=== PATIENT | male | born 1985 ===

== ENCOUNTER 2018-05-14 12:30 | Emergency (ER) | payer MEDICAID ==
[2018-05-14 12:54] VITALS: BMI 22.9
[2018-05-14 13:06] VITALS: BP 123/84; PULSE 78; RESP 18; TEMP 98.6; O2SAT 97
[2018-05-14] MEDS ORDERED: Lidocaine 5% Patch TD STA (13:42)
[2018-05-14] MEDS ORDERED: Lidocaine 5% Patch TD ONE (14:16)
--- NOTE | 2018-05-14 15:31 | C.PDOC ---
History Of Present Illness 32 year old male, who is otherwise well, presents to the ED for evaluation of right lower rib pain for one month. Patient states his symptoms were initially intermittent and have recently become more constant. Patient reports pain with movement and with deep breathing. Patient denies fever, chills, nausea, vomiting, abdominal pain, hematuria, dysuria. Time Seen by Provider: 05/14/18 13:31 Chief Complaint (Nursing): Chest Pain History Per: Patient History/Exam Limitations: no limitations Onset/Duration Of Symptoms: Intermittent Episodes, Other (one month ) Current Symptoms Are (Timing): Still Present Quality: "Pain" Additional History Per: Patient Past Medical History Reviewed: Historical Data, Nursing Documentation, Vital Signs Vital Signs: Last Vital Signs Temp 98.6 F 05/14/18 12:54 Pulse 78 05/14/18 12:54 Resp 18 05/14/18 12:54 BP 123/84 05/14/18 12:54 Pulse Ox 97 05/14/18 12:54 - Medical History PMH: No Chronic Diseases Denies: Depression Surgical History: Tonsillectomy Family History: States: Unknown Family Hx - Social History Hx Tobacco Use: No Hx Alcohol Use: Yes Hx Substance Use: No - Immunization History Hx Tetanus Toxoid Vaccination: No Hx Influenza Vaccination: No Hx Pneumococcal Vaccination: No Review Of Systems Constitutional: Negative for: Fever, Chills Gastrointestinal: Negative for: Nausea, Vomiting, Abdominal Pain Musculoskeletal: Positive for: Other (right lower rib pain ) Physical Exam - Physical Exam Appears: Non-toxic, No Acute Distress, Other (well-appearing, physically fit, covered in tattoos) Skin: Normal Color, Warm, Dry Head: Atraumatic, Normacephalic Eye(s): bilateral: Normal Inspection Ear(s): Bilateral: Normal Oral Mucosa: Moist Neck: Supple Chest: Symmetrical, No Deformity, Tenderness (over 11th and 12th ribs, anteriorly ) Cardiovascular: Rhythm Regular, No Murmur Respiratory: Normal Breath Sounds, No Rales, No Rhonchi, No Wheezing Gastrointestinal/Abdominal: Soft, No Tenderness, No Guarding, No Rebound Back: No CVA Tenderness Extremity: Normal ROM, Capillary Refill (less than 2 seconds ) Neurological/Psych: Normal Speech, Normal Cognition ED Course And Treatment O2 Sat by Pulse Oximetry: 97 (on RA ) Pulse Ox Interpretation: Normal Medical Decision Making Medical Decision Making: Progress: Ribs and Chest XR ordered and reviewed. Lidoderm patch, Motrin PO and Tylenol PO given. Disposition - Disposition Disposition: HOME/ ROUTINE Disposition Time: 15:43 Condition: STABLE Prescriptions: Cyclobenzaprine [Cyclobenzaprine HCl] 10 mg PO TID #12 tab Ibuprofen [Motrin] 600 mg PO TID #15 tab Instructions: Costochondritis (DC) Forms: [facility] (U[place]andan), General Discharge Instructions - POA Present On Arrival: None - Clinical Impression Clinical Impression: Acute costochondritis - Scribe Statement The provider has reviewed the documentation as recorded by the Scribe (Allegra Carrasco) Provider Attestation: All medical record entries made by the Scribe were at my direction and personally dictated by me. I have reviewed the chart and agree that the record accurately reflects my personal performance of the history, physical exam, medical decision making, and the department course for this patient. I have also personally directed, reviewed, and agree with the discharge instructions and disposition.
--- NOTE | 2018-05-14 15:49 | RAD ---
Date of service: 05/14/2018 PROCEDURE: Radiographs of the Chest and Right Ribs. HISTORY: pain to right lower ribs COMPARISON: None available. TECHNIQUE: Frontal radiograph of the chest and multiple oblique radiographs of the right ribs were obtained. 4 views obtained. FINDINGS: RIGHT RIBS: No fracture or focal lesion visualized. LUNGS: Clear. PLEURA: No pneumothorax or pleural fluid. CARDIOVASCULAR: Normal cardiac size. No pulmonary vascular congestion. No aortic atherosclerotic calcification present OTHER FINDINGS: None. IMPRESSION: Unremarkable radiographs of the chest and right ribs. No right rib fracture.
--- NOTE | 2018-05-16 06:39 | CARD ---
APPROVED REPORT Date of service: 05/14/2018 EKG Measurement Heart [id number] <Conclusion> Normal sinus rhythm Possible Left atrial enlargement Incomplete right bundle branch block Borderline ECG
== END 2018-05-14 16:00 | disposition home or self-care (01) ==
LOC: C.ER 12:30
DX: M94.0 Chondrocostal junction syndrome [Tietze] (principal)